=== PATIENT | female | born 1970 | race Caucasian/White ===

== ENCOUNTER 2022-10-11 12:39 | Emergency (ER) | payer MEDICAID ==
[~2022-10-11] VITALS: Ht 162.6 cm; Wt 58.0 kg
[2022-10-11 12:47] VITALS: BP 114/67; PULSE 70; RESP 20; TEMP 98.7; O2SAT 99
[2022-10-11 14:09] LABS: CLARITY URINE CLEAR (CLEAR); COLOR URINE YELLOW (YELLOW); KETONES URINE NEGATIVE (NEGATIVE); LEUKOCYTE ESTERASE URINE NEGATIVE (NEGATIVE); NITRITE URINE NEGATIVE (NEGATIVE); OCCULT BLOOD URINE NEGATIVE (NEGATIVE); PH URINE 7.5 (4.5-8.0); PROTEIN URINE NEGATIVE (NEGATIVE); SPECIFIC GRAVITY URINE 1.019 (1.005-1.030); UROBILINOGEN URINE 0.2 E.U./dL (0.2-1.0)
[2022-10-11] MEDS ORDERED: CLOT21CR4 VG (16:00)
[2022-10-11] MEDS ORDERED: NITR-87 MT (16:11)
[2022-10-15 13:06] LABS: NEISSERIA GONORRHOEAE NAA Negative (Negative)
== END 2022-10-11 16:15 | disposition home or self-care (01) ==
LOC: ER 13:39
DX: N39.0 Urinary tract infection, site not specified (principal)
CPT/HCPCS: 81003; 81025; 87210; 87491; 87591; 99283